=== PATIENT | female | born 1940 | race Caucasian/White ===

== ENCOUNTER 2021-11-27 18:37 | Emergency (ER) | payer OTHER, MEDICARE, SELFPAY ==
[2021-11-27 18:39] VITALS: BP 143/88; PULSE 89; RESP 16; TEMP 35.7; O2SAT 96; BMI 27.3
--- NOTE | 2021-11-27 18:48 | CT_ITS ---
EXAM: CT Cervical Spine Without Intravenous Contrast CLINICAL INDICATION: 81 years old, Female; trauma TECHNIQUE: Helically acquired images were obtained of the cervical spine without intravenous contrast. 2D reformatted images were reviewed. This CT exam was performed using one or more of the following dose reduction techniques: automated exposure control, adjustment of the mA and/or kV according to patient size, and/or use of iterative reconstruction technique. This report was created using [employer] technology. COMPARISON: None. FINDINGS: Vertebrae: Cervical fusion from C5 C7. Grade 1 anterolisthesis of C7 on T1 which appears to be on a degenerative basis. Degenerative facet arthropathy throughout the cervical spine. No fracture. No discrete lytic or blastic abnormality. Discs/spinal canal/neural foramina: Degenerative disc disease C4-C5. No critical stenosis. Soft tissues: Unremarkable. No prevertebral soft tissue swelling. Lymph nodes: Unremarkable. No cervical adenopathy. Thyroid: Left-sided thyroid goiter with calcification. There appears to be a 4.7 cm left-sided thyroid nodule which could be better assessed with ultrasound if indicated. Lung apices: Unremarkable as visualized. Clear. CT/Spine Cervical without Contras IMPRESSION: Left-sided thyroid goiter with calcification. There appears to be a 4.7 cm left-sided thyroid nodule which could be better assessed with ultrasound if indicated. Electronically Signed: Mike Mccarty MD at 19:56 EST Tel , Service support ,
--- NOTE | 2021-11-27 18:48 | CT_ITS ---
EXAM: CT Head Without Intravenous Contrast CLINICAL INDICATION: 81 years old, Female; trauma TECHNIQUE: Multiple axial images were obtained of the head without intravenous contrast. This CT exam was performed using one or more of the following dose reduction techniques: automated exposure control, adjustment of the mA and/or kV according to patient size, and/or use of iterative reconstruction technique. This report was created using [id number] report generation technology. COMPARISON: None. FINDINGS: Brain and extra-axial spaces: Unremarkable. No intra- or extra-axial hemorrhage. No evidence of acute infarct. No intracranial mass or mass effect. There is preservation of the shah/white matter interface. Posterior fossa structures are unremarkable. Ventricles are appropriate for age. No hydrocephalus. Basal cisterns are patent. Bones/joints: Unremarkable. No discrete lytic or blastic abnormalities. Vasculature: Atherosclerotic disease. Sinuses: Unremarkable as visualized. Clear. Mastoid air cells: Unremarkable. Clear. Orbits: Visualized globes, extraocular muscles, optic nerves and retrobulbar fat appear unremarkable. CT/Brain/Head without Contrast IMPRESSION: No acute findings in the head/brain. Electronically Signed: Mike Mccarty MD at 19:48 EST Tel , Service support ,
--- NOTE | 2021-11-27 18:50 | EDS_ITS ---
HPI History of Present Illness Chief Complaint: Fall Detail of Chief Complaint: Fall with injury to head Informant: patient Narrative Narrative: Patient presents to the emergency department with a fall that occurred prior to arrival in the emergency department. Patient presents via EMS from work. Patient was on a small step ladder and as she was coming down she missed the last up and fell backward striking her head on the ground. No loss of consciousness. She did sustain a laceration to the back of her head. She complains of some neck pain. She denies paresthesias. Patient tells me she has had prior cervical fusion. Patient also complains of some pain in her left buttock and has not ambulated since the fall. She is not sure if she is on any blood thinners. PFSH [facility] Medical History (Updated 11/27/21 @ 19:[address] Coy Mejia, ) Carpal tunnel syndrome Diabetes Home Medications NK 11/27/21 [History Last Taken Unknown] Allergy/AdvReac Type Severity Reaction Status Date / Time ciprofloxacin [From Cipro] AdvReac Upset Verified 11/27/21 18:38 Stomach exenatide [From Byetta] AdvReac Upset Verified 11/27/21 18:38 Stomach Surgical History (Updated 11/27/21 @ 18:40 by Ronel Quevedo) History of hysterectomy Social History Smoking Status: Never smoker ROS [facility] ED Constitutional Constitutional ED: Reports systems reviewed and no addt'l complaints, except as documented; Denies body ache(s), change in weight or chills Eyes Eyes: Denies acute decrease in peripheral vision, change in vision, double vision or loss of vision ENT ENT ED: Reports none; Denies ear pain, lip swelling, loss taste/smell, neck pain, otalgia or sore throat Cardiovascular Cardiovascular: Reports none; Denies abdominal pain, chest pain with activity, leg edema, lightheadedness, palpitations, rapid heart rate or syncope Respiratory/Chest Respiratory/Chest: Reports none; Denies change in mental status, dry cough, dyspnea, hemoptysis, shortness of breath at rest or shortness of breath with exertion Gastrointestinal Gastrointestinal: Reports none; Denies abdominal pain, change in stool character, diarrhea, hematemesis, hematochezia, melena, rectal bleeding or vomiting Genitourinary Genitourinary ED: Reports none; Denies abdominal discomfort, anuria, dysuria, genital pain or polyuria Musculoskeletal Musculoskeletal: Reports none and neck pain; Denies arthralgias, back pain, difficulty walking, extremity pain, muscle weakness or myalgias Integumentary Reports none; Denies abscess or rash Neurologic Neurologic: Reports none and headache(s); Denies abnormal gait, confusion, focal weakness, frequent falls, loss of vision, numbness, paresthesias, radicular pain, vertigo or weakness Psychiatric Psychiatric: Reports systems reviewed and no addt'l complaints, except as documented and none; Denies behavioral changes, confusion, difficulty concentrating, hallucinations, suicidal ideation, tactile hallucinations or visual hallucinations Endocrine Endocrinology: Denies none, cold intolerance, excessive sweating, fatigue or heat intolerance Hematologic/Lymphatic Hematologic/Lymphatic: Reports none; Denies anemia, easy bleeding or easy bruising Allergic/Immunologic Allergic/Immunologic ED: Denies as per HPI, none, lip swelling, mouth swelling, throat swelling, tongue swelling or hives EXAM Physical Exam Const Vital Signs: 11/27/21 18:39 Temperature 96.2 F L Temperature Source Temporal Pulse Rate 89 Respiratory Rate 16 Respiratory Effort Normal Non-Labored Respiratory Depth Normal Respiratory Pattern Normal Blood Pressure 143/88 H Blood Pressure Mean 106 Pulse Ox 96 Oxygen Delivery Method Room Air Positive well nourished and well developed General Appearance ED: well developed and NAD HEENT Reports TM's clear and moist mucous membranes HEENT Narrative: Patient has a 3 cm laceration to the left posterior occiput with no bony depressions noted. normocephalic; Negative for trauma or tenderness Tympanic Membrane ED: Yes TM's clear Eyes PERRL and EOMs intact bilaterally General Eye ED: Negative for pale conjunctiva or scleral icterus Neck no lymphadenopathy, supple and no JVD Neck Narrative: Patient has diffuse tenderness over the C-spine. No bony step- offs noted. Good range of motion. General: Negative for tenderness Chest Wall inspection of chest normal and palpation of chest normal Chest: Negative for tenderness Resp normal respiratory effort and clear to auscultation bilaterally Effort and Inspection: Negative for respiratory distress or pain with movement Auscultation: Negative for rhonchi, wheezes or diminished lung sounds Cardio regular rate, regular rhythm, S1 normal heart sound, S2 normal heart sound and no murmurs Peripheral Pulses: pulses 2+ throughout GI normal to inspection, nondistended, normoactive bowel sounds, soft to palpation, non-tender, non-distended and no masses Back/Spine no CVA tenderness and no thoracic nor lumbar tenderness Extremity Extremity Narrative: Patient has some tenderness palpation over the left buttock and left hip. No shortening or external rotation of the lower extremity noted. Neurovascular intact. General Extremety ED: Negative for edema General Extremity: Negative for edema Neuro oriented x3, CN's II-XII intact bilaterally, no sensory deficits noted and gait normal Sensorium / Orientation: awake, alert, oriented to person, oriented to place and oriented to time Motor Exam: strength 5/5 throughout and strength abnormal Psych mental status grossly normal Skin no rashes or lesions noted and no wounds PROC Procedures Lacerations Scalp laceration: Length: 1.18 in Depth: Sub Q Prep: Sterile Conditions and Shure-Clens Laceration repair: Irrigated, Lidocaine with epi and Local Irrigated (ml): 100 Number of Sutures/[place]: 3 Suture Information: Ethilon, Simple and 4-0 MDM MDM MDM Narrative Medical decision making narrative: CT scan of the brain without contrast obtained interpreted by myself as no acute intracranial hemorrhage or skull fracture. Official radiology result pending. Patient also had a CT scan of the C-spine which showed a bony fusion of C4, 5, and 6 with no obvious fractures on my interpretation however official report from radiology pending. Pelvis x-ray 1 view obtained interpreted by myself no acute fractures. Patient had suture repair of her scalp laceration. She is advised to follow-up with [facility] in 10 days for suture removal. Discharge Plan Triage Chief Complaint: Fall ED Provider: Coy Mejia Dx/Rx/DC Orders Clinical Impression: Closed head injury, Laceration of scalp, Cervical muscle strain, Contusion of hip, left Instructions: ED Mechanical Fall, ED Head Injury (Adult), ED Hip Contusion, ED Laceration Scalp Stitches or Sarahi, ED Neck Sprain or Strain Prescriptions: No Action NK RF: 0 Primary Care Provider: Keila Hernandez NP Referrals: [facility] [GROUP OF PHYSICIANS] - 10 Day for suture removal Keila Hernandez NP, [employer] [Primary Care Provider] - Disposition Disposition: Home, Self Care
--- NOTE | 2021-11-27 19:04 | RAD_ITS ---
EXAM: XR Pelvis, 1 or 2 Views CLINICAL INDICATION: 81 years old, Female; fall TECHNIQUE: Frontal view of the pelvis. This report was created using [employer] report generation technology. COMPARISON: None. FINDINGS: Bones/joints: Unremarkable. No displaced fracture. No destructive or sclerotic lesions. Note that overlapping bowel shadows may however obscure fine detail. Sacroiliac joints are unremarkable. No widening of the pubic symphysis. The articular structures are unremarkable. Soft tissues: Unremarkable. No soft tissue swelling or gas. RAD/Pelvis 1 or 2 Views IMPRESSION: No evidence of displaced pelvic fracture. Electronically Signed: Mike Mccarty MD at 20:04 EST Tel , Service support ,
--- NOTE | 2021-11-27 19:11 | ED.RN ---
PER TREVA, WORK[employer] [facility], SHE SPOKE WITH PT DIRECTOR OF PHYSICIAN PRACTICES, AND PT DOES NOT REQUIRE A DRUG SCREEN.
[2021-11-27] MEDS: Lidocaine 1% /Epi 1:100 (20ml) 20 ML Vial 6 ML INFILT (19:15)
[2021-11-27 20:15] VITALS: BP 140/54; PULSE 78; RESP 18
== END 2021-11-27 20:15 | disposition home or self-care (01) ==
PROVIDERS: Emergency Provider Emergency Medicine; PCP Nurse Practitioner Primary Care; Visit Provider Emergency Medicine
DX: S01.01XA Laceration without foreign body of scalp, initial encounter (principal); S70.02XA Contusion of left hip, initial encounter; S16.1XXA Strain of muscle, fascia and tendon at neck level, initial encounter; W11.XXXA Fall on and from ladder, initial encounter; Y99.0 Civilian activity done for income or pay
CPT/HCPCS: 12002; 70450; 72125; 72170; 99285